=== PATIENT | female | born 1960 | race Caucasian/White ===

== ENCOUNTER → 2016-08-28 | Outpatient (CLI) | payer OTHER ==
[~2016-08-28] MED LIST: ASPCH81X PO
--- NOTE | 2016-08-29 13:02 | MAMMOGRAPHY REPORT ---
BILATERAL DIGITAL SCREENING MAMMOGRAM TOMOSYNTHESIS WITH CAD: 08/28/2016 CLINICAL HISTORY: Routine screening. Patient has no complaints. TECHNIQUE: Breast tomosynthesis in addition to standard 2D mammography was performed. Current study was also evaluated with a Computer Aided Detection (CAD) system. COMPARISON: Comparison is made to exams dated: 08/24/2015 mammogram, 07/15/2014 mammogram, 01/22/2014 m ammogram, and 07/15/2013 mammogram - [facility]. BREAST COMPOSITION: The tissue of both breasts is heterogeneously dense, which may obscure small ma sses. FINDINGS: There are stable circumscribed masses in the upper outer quadrant of the right breast. S cattered benign coarse calcifications. No new suspicious mass, architectural distortion or cluster o f microcalcifications is seen. IMPRESSION: ACR BI-RADS CATEGORY 2: BENIGN There is no mammographic evidence of malignancy. A 1 year screening mammogram is recommended. The p atient will receive written notification of the results. Approximately 10% of breast cancers are not detected with mammography. A negative mammographic repor t should not delay biopsy if a clinically suggestive mass is present. Kathia Wilde M.D. ay/:08/28/2016 15:47:22 Auto Service Station Attendant: Meghan MODI(Chilango)(Tawny)(BD), [facility] letter sent: Normal 1/2 BI-RADS Code: ACR BI-RADS Category 2: Benign
== END | disposition home or self-care (01) ==
LOC: C.MAMM 11:36
PROVIDERS: ATTEND Family Medicine
DX: Z12.31 Encounter for screening mammogram for malignant neoplasm of breast (principal)

== ENCOUNTER → 2017-08-30 | Outpatient (CLI) | payer OTHER ==
--- NOTE | 2017-08-31 14:41 | MAMMOGRAPHY REPORT ---
BILATERAL DIGITAL SCREENING MAMMOGRAM TOMOSYNTHESIS WITH CAD: 08/30/2017 CLINICAL HISTORY: Routine screening. Patient has no complaints. TECHNIQUE: Breast tomosynthesis in addition to standard 2D mammography was performed. Current study was also evaluated with a Computer Aided Detection (CAD) system. COMPARISON: Comparison is made to exams dated: 08/28/2016 mammogram, 08/24/2015 mammogram, 07/15/2014 ul trasound, 07/15/2014 mammogram, 01/22/2014 ultrasound, and 01/22/2014 mammogram - [facility]. BREAST COMPOSITION: The tissue of both breasts is heterogeneously dense, which may obscure small mas ses. FINDINGS: There are stable subcentimeter circumscribed masses in the upper outer posterior right jojo ast. However, there is a newly visualized 8.5 mm partially circumscribed mass in the left upper oute r quadrant. Although this could represent a cyst, definitive characterization with targeted ultrasou nd and possible additional mammographic views are recommended. No other suspicious mass, architectural distortion or cluster of microcalcifications is seen. IMPRESSION: ACR BI-RADS CATEGORY 0: INCOMPLETE EVALUATION: NEED ADDITIONAL IMAGING EVALUATION The newly visualized 8.5 mm mass in the left upper outer breast needs additional evaluation. The patient will be called to schedule an appointment. Approximately 10% of breast cancers are not detected with mammography. A negative mammographic report should not delay biopsy if a clinically suggestive mass is present. Kathia Wilde M.D. ay/:08/30/2017 15:14:27 Fireproof Door Maker: Laverne Husain, [facility] letter sent: Addl Imaging 0 BI-RADS Code: ACR BI-RADS Category 0: Incomplete Evaluation: Need Additional Imaging Evaluation
== END | disposition home or self-care (01) ==
LOC: C.MAMM 09:53
PROVIDERS: ATTEND Physician Assistant
DX: Z12.31 Encounter for screening mammogram for malignant neoplasm of breast (principal); N63.20 Unspecified lump in the left breast, unspecified quadrant

== ENCOUNTER → 2017-09-12 | Outpatient (CLI) | payer OTHER ==
--- NOTE | 2017-09-13 08:04 | MAMMOGRAPHY REPORT ---
ULTRASOUND OF BOTH BREASTS: 09/12/2017 CLINICAL HISTORY: 57-year-old woman called back from screening mammography for a partially circumscri bed 8.5 mm mass in the upper outer middle one third of the left breast. COMPARISON: Comparison is made to exams dated: 08/28/2016 mammogram, 08/24/2015 mammogram, 07/15/2014 ul trasound, 08/30/2017 mammogram, 07/15/2014 mammogram, and 01/22/2014 ultrasound - [facility] enter. FINDINGS: Targeted ultrasound was performed in the upper outer quadrant of the left breast to assess for the partially circumscribed 8.5 mm mammographic mass seen on recent screening mammogram. In the 3:00 axis, 4 cm from the nipple, there is a gently lobulated predominantly anechoic benign cyst with 2 internal nonvascular septations. This cyst measures 7.8 x 4.8 x 7.6 mm and correlates with the jeff mographic mass. This is benign. Incidentally seen in the left 2:00 breast, 2 cm from the nipple is an isoechoic solid mass that is indeterminate. This incidental mass is not completely circumscribed, lobulated and measures 5.1 x 3.8 x 5.9 mm. Definitive characterization with an ultrasound-guided co re biopsy is recommended. IMPRESSION: ACR BI-RADS CATEGORY 4: SUSPICIOUS - FOLLOW-UP RECOMMENDED 1. The lobulated 8.5 mm mammographic mass in the left upper outer quadrant correlates with a benign cyst on ultrasound seen in the 3:00 axis. 2. Incidentally identified on ultrasound while assessing for the other mass is a non-circumscribed i soechoic solid 5.9 mm mass in the 2:00 left breast, 2 cm from the nipple that could represent a benig n fibroadenoma although definitive characterization with ultrasound guided core needle biopsy is jean mmended. These results and recommendations were discussed with the patient at the time of the exam. She tenta tively scheduled a left breast biopsy prior to leaving the department. Kathia Wilde M.D. ay/:09/12/2017 14:18:12 Button Bradder: Laverne MODI(Chilango)(Tawny), [facility] letter sent: Abnormal 4/5 BI-RADS Code: ACR BI-RADS Category 4: Suspicious
== END | disposition home or self-care (01) ==
LOC: C.MAMM 12:48
PROVIDERS: ATTEND Physician Assistant
DX: N63.21 Unspecified lump in the left breast, upper outer quadrant (principal)

== ENCOUNTER → 2017-09-19 | Outpatient (CLI) | payer OTHER ==
--- NOTE | 2017-09-19 09:30 | Discharge Instructions ---
Discharge Instructions Procedure Procedure Date: Sep 19, 2017. Reason for visit: Left Mass. Discharge Discharge Date: Sep 19, 2017. Discharge Diagnosis: post left breast ultrasound guided core biopsy Instructions Activity Recommendations: Additional Limitations (see below) Return to School/Work: no limitations Recommended Home Diet: No Limitations Provider Instructions: ACTIVITY RECOMMENDATIONS: * No lifting, pushing, pulling or exercising the affected side for three days. RETURN TO SCHOOL/WORK: * You may return to work/school after the procedure, but do not perform any strenuous activities for 24 to 48 hours. MEDICATIONS: * Tylenol (two 325 mg) every four to six hours if needed for mild pain (if not allergic to Tylenol). DIET: * Resume previous diet. SPECIAL CARE INSTRUCTIONS: * Keep biopsy site dry for 24 hours. May shower after 24 hours, but do not soak (bathe) incision. * May remove Tegaderm (plastic patch) tomorrow AFTER showering. * Leave the steri-strips on for one week. Allow the steri-strips to fall off by themselves. If not off after one week, you may remove them. You may place a Bandaid crosswise over the strips, if desired. * Apply ice 10 minutes on and 10 minutes off as needed. * Wear a bra at bedtime to sleep more comfortably for 2-3 days. * Your referring physician should have the results after approximately 5 to 7 business days. * Call for unusual bleeding, fever, drainage, etc or if you have any questions call [phone] during normal business hours or after hours call Dr Wilde, . FOLLOW UP VISIT: Follow-up with Referring Physician as scheduled. Allergies Coded Allergies: Sulfa Drugs (Verified Allergy, Mild, HIVES, 08/13/09) [facility] [place] Recommendations: Call your doctor if: * Temperature above 101 degrees * Pain not relieved by pain medicine ordered * There is increased drainage or redness from any incision * You have any unanswered questions or concerns. Your Doctors Instructions noted above were prepared by provider Kathia Wilde. Patient Signature Section: Patient Instructions Signature Page Brittanykaylyn Villeda Patient (or Guardian) Signature/Date: I have read and understand the instructions given to me by my caregivers. Caregiver/RN/Doctor Signature/Date: The above-named patient and/or guardian has received patient instructions on this date. + Original Patient Signature Page (only) stays with chart. Please make copy for patient.
--- NOTE | 2017-09-19 15:38 | MAMMOGRAPHY REPORT ---
UNILATERAL LEFT DIGITAL DIAGNOSTIC MAMMOGRAM TOMOSYNTHESIS: 09/19/2017 CLINICAL HISTORY: Status post ultrasound-guided core biopsy of an isoechoic mass in the 2:00 left jojo ast. Please refer to the report from left breast ultrasound-guided core biopsy performed at the same time for full detail. IMPRESSION: POST PROCEDURE IMAGING FOR MARKER PLACEMENT Please refer to the report from left breast ultrasound-guided core biopsy performed at the same time for full detail. Approximately 10% of breast cancers are not detected with mammography. A negative mammographic report should not delay biopsy if a clinically suggestive mass is present. Kathia Wilde M.D. ay/:09/19/2017 09:36:26 Mine Supervisor: Marbella HAZEL)(M), [facility] BI-RADS Code: Post Procedure Imaging For Marker Placement
--- NOTE | 2017-09-20 15:14 | MAMMOGRAPHY REPORT ---
ULTRASOUND GUIDED BIOPSY LEFT BREAST: 09/19/2017 CLINICAL HISTORY: Isoechoic 5.9 mm mass incidentally identified in the 2:00 left breast on targeted u ltrasound, while scanning for a slightly larger mass identified mammographically. Patient presents f or ultrasound-guided core biopsy of this indeterminate isoechoic mass. The larger mass corresponded with a benign simple cyst. COMPARISON: Comparison is made to exams dated: 09/12/2017 ultrasound, 08/30/2017 mammogram, 08/28/2016 m ammogram, 08/24/2015 mammogram, 07/15/2014 mammogram, and 07/07/2013 mammogram - [facility] enter. PATIENT CONSENT: The procedure, risks and benefits were discussed with the patient and informed conse nt was obtained both verbally and in writing. Specific risks to this procedure include: bleeding, in fection, puncture of adjacent structure, nontarget biopsy, sampling error, pain, metal allergy and me dication reaction. PROCEDURE DESCRIPTION: A time out was performed and the left breast was agreed as the site of biopsy. The skin was prepped and draped in the usual sterile fashion. The isoechoic 5.9 mm mass in the 2:00 left breast was chosen as the target for biopsy. Subcutaneous and intraparenchymal 1% buffered lidoca ine, with and without epinephrine, was administered as local anesthesia. A skin incision was made. T hrough the incision, 4 samples were taken with a 14 gauge Achieve biopsy device. A ribbon shaped meta llic marker was placed at the biopsy site. Hemostasis was achieved after manual compression. The lucia ent tolerated the procedure well and there was no immediate complication. The samples were sent to [facility] pathology department in an appropriately labeled container. Postprocedure left CC and ML tomosynthesis images were obtained. There is a new ribbon-shaped biopsy marker clip in the 2:00 middle one third of the left breast, at the site of the biopsied isoechoic 5 .9 mm mass identified on ultrasound. No significant postbiopsy hematoma. IMPRESSION: ULTRASOUND GUIDED BIOPSY Status post ultrasound-guided core biopsy of an isoechoic 5.9 mm mass in the 2:00 left breast, with b iopsy marker placed at the site. The patient will receive notification of the biopsy results from her referring physician. Kathia Wilde M.D. ay/:09/19/2017 16:27:44 Line Walker: Karen Melton RT(R)(M), [facility]
== END | disposition home or self-care (01) ==
LOC: C.MAMM 08:44
PROVIDERS: ATTEND Physician Assistant
DX: R92.8 Other abnormal and inconclusive findings on diagnostic imaging of breast (principal); N63.20 Unspecified lump in the left breast, unspecified quadrant; D24.2 Benign neoplasm of left breast

== ENCOUNTER 2018-02-10 11:36 | Emergency (ER) | payer OTHER ==
[~2018-02-10] VITALS: Ht 170.2 cm; Wt 71.8 kg
[2018-02-10 11:38] VITALS: TEMP 36.7; Ht 170.2 cm; Wt 71.8 kg
--- NOTE | 2018-02-10 12:06 | EMERGENCY ROOM VISIT NOTE ---
History Report prepared by Pattie: Guadalupe Chen Under the Supervision of: Dr. Sarah Rankin D.O. First contact with patient: 11:47 Chief Complaint: CHEST PAIN Stated Complaint: CHEST PAIN History of Present Illness The patient is a 57 year old female who presents to the Emergency Room with complaints of intermittent chest pain that started 2 days ago. The patient rates her pain a 9/10 in severity. The patient reports the pain radiates "straight through" to her back. The patient describes the pain as "burning." She notes she ate pizza with onions and peppers and thought it could be indigestion so she took antacid pills with no relief. The patient reports she has a history of IBS. She also complains of nausea and dizziness when the pain gets severe. She denies shortness of breath, vomiting, or syncope. She states her mom has a history of hiatal hernia. She denies any recent travels. The patient notes she still has her gallbladder. Source of History: patient Onset: 2 days ago Position: chest Symptom Intensity: 9/10 Quality: sharp Timing: intermittent Associated Symptoms: + nausea, No SOB, No vomiting Review of Systems See HPI for pertinent positives & negatives. A total of 10 systems reviewed and were otherwise negative. Past Medical & Surgical Medical Problems: (1) Bronchitis (2) IBS (irritable bowel syndrome) Surgical Problems: (1) H/O: hysterectomy Family History Diabetes mellitus FHx: cancer Gallbladder disease Heart disease Hypertension Kidney disease Kidney stones Social History Smoking Status: Never Smoker Current/Historical Medications No Active Prescriptions or Reported Meds Allergies Coded Allergies: Sulfa Drugs (Verified Allergy, Mild, HIVES, 02/10/18) Physical Exam Vital Signs Date Time Temp Pulse Resp B/P (MAP) Pulse Ox O2 Delivery O2 Flow Rate FiO2 02/10/18 17:03 163/81 02/10/18 17:02 149/71 02/10/18 17:01 57 20 142/75 62 149/71 62 163/81 02/10/18 17:01 142/75 02/10/18 17:00 161/75 02/10/18 16:36 63 19 98 02/10/18 16:31 139/72 02/10/18 16:06 61 21 97 02/10/18 16:01 142/77 02/10/18 15:36 63 19 97 02/10/18 15:31 138/79 02/10/18 15:06 63 17 99 02/10/18 15:01 142/73 02/10/18 14:36 63 22 97 02/10/18 14:33 62 02/10/18 14:33 75 20 156/76 98 Room Air 02/10/18 14:31 156/76 02/10/18 13:45 98 Room Air 02/10/18 11:38 36.7 78 17 194/74 98 Room Air Physical Exam GENERAL: alert, well appearing, well nourished, no distress, non-toxic EYE EXAM: normal conjunctiva, PERRL and EOM's grossly intact OROPHARYNX: no exudate, no erythema, lips, buccal mucosa, and tongue normal and mucous membranes are moist NECK: supple, no nuchal rigidity, no adenopathy, non-tender LUNGS: Clear to auscultation. Normal chest wall mechanics, no w/r/r HEART: no murmurs, S1 normal and S2 normal ABDOMEN: abdomen soft, normo-active bowel sounds, no masses, no rebound or guarding. Epigastric tenderness. BACK: Back is symmetrical on inspection and there is no deformity, no midline tenderness, no CVA tenderness. SKIN: no rashes and no bruising UPPER EXTREMITIES: upper extremities are grossly normal. FROM, nml pulses. LOWER EXTREMITIES: No pitting edema. FROM, nml pulses. NEURO EXAM: Normal sensorium, cranial nerves II-XII grossly intact, normal speech, no gross weakness of arms, no gross weakness of legs. Medical Decision & Procedures ER Provider Diagnostic Interpretation: Radiology results have been interpreted by the radiologist and reviewed by me. CHEST ONE VIEW PORTABLE CLINICAL HISTORY: chest pain dyspnea COMPARISON STUDY: 02/01/2009 FINDINGS: The bones soft tissues and hemidiaphragms are normal. The cardiomediastinal silhouette is normal. The lungs are clear. The pulmonary vasculature is normal. IMPRESSION: Negative chest. The above report was generated using voice recognition software. It may contain grammatical, syntax or spelling errors. Electronically signed by: Ger Raza M.D. 02/10/2018 12:34 PM Dictated Date/Time: 02/10/2018 12:34 PM GALLBLADDER-ABD LIMITED CLINICAL HISTORY: epigastric pain nausea TECHNIQUE: Ultrasound COMPARISON STUDY: None FINDINGS: Normal gallbladder. Common bile duct 3 mm. Fatty infiltration of liver. Pancreas and right kidney are unremarkable. No evidence for hydronephrosis. IMPRESSION: Fatty infiltration of liver. Otherwise negative study. The above report was generated using voice recognition software. It may contain grammatical, syntax or spelling errors. Electronically signed by: Ger Raza M.D. 02/10/2018 1:45 PM Dictated Date/Time: 02/10/2018 1:45 PM Laboratory Results 02/10/18 12:42 Red Blood Count 4.52, Mean Corpuscular Volume 93.8, Mean Corpuscular Hemoglobin 31.6, Mean Corpuscular Hemoglobin Concent 33.7, Mean Platelet Volume 10.8, Neutrophils (%) (Auto) 65.9, Lymphocytes (%) (Auto) 24.7, Monocytes (%) (Auto) 6.2, Eosinophils (%) (Auto) 2.3, Basophils (%) (Auto) 0.8, Neutrophils # (Auto) 5.66, Lymphocytes # (Auto) 2.12, Monocytes # (Auto) 0.53, Eosinophils # (Auto) 0.20, Basophils # (Auto) 0.07 02/10/18 12:42 Test 02/10/18 12:42 White Blood Count 8.59 K/uL (4.8-10.8) Red Blood Count 4.52 M/uL (4.2-5.4) Hemoglobin 14.3 g/dL (12.0-16.0) Hematocrit 42.4 % (37-47) Mean Corpuscular Volume 93.8 fL (80-100) Mean Corpuscular Hemoglobin 31.6 pg (25-34) Mean Corpuscular Hemoglobin Concent 33.7 g/dl (32-36) Platelet Count 243 K/uL (130-400) Mean Platelet Volume 10.8 fL (7.4-10.4) Neutrophils (%) (Auto) 65.9 % Lymphocytes (%) (Auto) 24.7 % Monocytes (%) (Auto) 6.2 % Eosinophils (%) (Auto) 2.3 % Basophils (%) (Auto) 0.8 % Neutrophils # (Auto) 5.66 K/uL (1.4-6.5) Lymphocytes # (Auto) 2.12 K/uL (1.2-3.4) Monocytes # (Auto) 0.53 K/uL (0.11-0.59) Eosinophils # (Auto) 0.20 K/uL (0-0.5) Basophils # (Auto) 0.07 K/uL (0-0.2) RDW Standard Deviation 44.7 fL (36.4-46.3) RDW Coefficient of Variation 13.1 % (11.5-14.5) Immature Granulocyte % (Auto) 0.1 % Immature Granulocyte # (Auto) 0.01 K/uL (0.00-0.02) Prothrombin Time 9.9 SECONDS (9.0-12.0) Prothromb Time International Ratio 0.9 (0.9-1.1) Anion Gap 4.0 mmol/L (3-11) Est Creatinine Clear Calc Drug Dose 85.2 ml/min Estimated GFR () 110.7 Estimated GFR (Non- 95.5 BUN/Creatinine Ratio 15.0 (10-20) Calcium Level 8.4 mg/dl (8.5-10.1) Total Bilirubin 0.6 mg/dl (0.2-1) Aspartate Amino Transf (AST/SGOT) 12 U/L (15-37) Alanine Aminotransferase (ALT/SGPT) 20 U/L (12-78) Alkaline Phosphatase 88 U/L (45-117) Troponin I < 0.015 ng/ml (0-0.045) Pro-B-Type Natriuretic Peptide 120 pg/ml (0-900) Total Protein 7.1 gm/dl (6.4-8.2) Albumin 3.8 gm/dl (3.4-5.0) Globulin 3.3 gm/dl (2.5-4.0) Albumin/Globulin Ratio 1.2 (0.9-2) Lipase 154 U/L (73-393) Laboratory results per my review. Medications Administered Medications (Trade) Dose Ordered Sig/[place] Route Start Time Stop Time Status Last Admin Dose Admin Famotidine (Pepcid 20mg Iv Push) 20 mg ONE STAT IV 02/10/18 12:08 02/10/18 12:10 DC 02/10/18 14:42 20 MG Sucralfate (Carafate Susp) 1 gm NOW STAT PO 02/10/18 14:23 02/10/18 14:27 DC 02/10/18 15:18 1 GM Al Hydroxide/Mg Hydroxide (Maalox Susp) 30 ml NOW STAT PO 02/10/18 14:47 02/10/18 14:48 DC 02/10/18 15:28 30 ML Dicyclomine HCl (Bentyl Tab) 20 mg NOW STAT PO 02/10/18 14:47 02/10/18 14:48 DC 02/10/18 15:28 20 MG ECG Per My Interpretation Indication: chest pain Rate (beats per minute): 63 Rhythm: sinus rhythm Findings: no acute ischemic change, no ectopy, other (normal axis, normal intervals) ED Course 1147: The patient was evaluated in room B6. A complete history and physical exam was performed. 1208: Ordered Famotidine 20 mg IV. 1420: I rechecked the patient. She is feeling better. I updated her on her results. 1423: Ordered Sucralfate 1 gm PO. 1439: Ordered Famotidine 20 mg IV. 1447: Ordered Bentyl Tab 20 mg PO, Maalox Susp 30 ml PO. 1526: Ordered Bentyl Cap 20 mg .ROUTE. 1620: I rechecked the patient. She states she is feeling better but is still having some pain. 1645: Bedside ultrasound of aorta. No evidence of aneurysm or dissection. Sagittal measurement 1.39 cm. Longitudinal measurement 1.43 cm. 1655: Upon reevaluation, the patient is feeling better. I discussed the findings and the treatment plan with the patient. She verbalizes agreement and understanding. She was discharged home. Medical Decision Differential diagnosis: Etiologies such as cardiac ischemia, aortic dissection, pulmonary embolism, pneumonia, pneumothorax, musculoskeletal, infections, pericarditis, myocarditis , esophageal rupture, gastrointestinal, as well as others were entertained. Heart score 2 Patient's pain more epigastric than chest. Given that her symptoms started after pizza with peppers and onions, I feel this is more likely to be GI in origin. No evidence of acute cholecystitis but he did discuss with patient this could still be biliary colic and she may need an outpatient nuclear study and additional evaluation. Labs reassuring, troponin negative here after 3 days of pain, less likely ACS. I do not suspect acute vascular etiology including AAA or dissection. Bedside ultrasound of the aorta was reassuring and measurements within normal limits. Patient hemodynamically stable throughout. I do not suspect occult bacteremia/sepsis. No evidence of hypertensive urgency or emergency. I do not suspect perforation or GI bleed. Discussed with patient close follow-up, symptoms to watch and return for, she verbalized understanding was agreeable with plan. Medication Reconcilliation Current Medication List: was personally reviewed by me Blood Pressure Screening Patient's blood pressure: Elevated blood pressure Blood pressure disposition: Referred to PCP Impression Primary Impression: Epigastric pain Scribe Attestation The scribe's documentation has been prepared under my direction and personally reviewed by me in its entirety. I confirm that the note above accurately reflects all work, treatment, procedures, and medical decision making performed by me. Departure Information Dispostion Home / Self-Care Prescriptions No Active Prescriptions or Reported Meds Referrals Gurinder Trujillo M.D. (PCP) Patient Instructions My [facility] Additional Instructions Please call and follow-up with your family doctor regarding your pain. They may suggest additional testing including a possible HIDA scan of your gallbladder. Please avoid acidic foods and start taking an [id number] acid reducing medication such as Prilosec or Pepcid. Please avoid anti- inflammatories such as ibuprofen/Motrin/Aleve/Advil as these can irritate your stomach as well. Please try to avoid acidic foods such as alcohol, coffee, soda , tomato based products, and citrus fruits. If you have any recurrent or worsening pain, develop black or bloody stools, chest pain, trouble breathing, dizziness, fevers or chills, you have any other new concerns, please return the emergency room.
--- NOTE | 2018-02-10 12:36 | DIAGNOSTIC IMAGING REPORT ---
CHEST ONE VIEW PORTABLE CLINICAL HISTORY: chest pain dyspnea COMPARISON STUDY: 02/01/2009 FINDINGS: The bones soft tissues and hemidiaphragms are normal. The cardiomediastinal silhouette is normal. The lungs are clear. The pulmonary vasculature is normal. IMPRESSION: Negative chest. The above report was generated using voice recognition software. It may contain grammatical, syntax or spelling errors. Electronically signed by: Ger Raza M.D. 02/10/2018 12:34 PM Dictated Date/Time: 02/10/2018 12:34 PM
[2018-02-10 12:54] LABS: BASO % 0.8 %; BASO ABS # 0.07 K/uL (0-0.2); EOS % 2.3 %; HEMATOCRIT 42.4 % (37-47); HEMOGLOBIN 14.3 g/dL (12.0-16.0); IG# 0.01 K/uL (0.00-0.02); LYMPH % 24.7 %; LYMPH ABS # 2.12 K/uL (1.2-3.4); MEAN CELL VOLUME 93.8 fL (80-100); MEAN CORPUSCULAR HEMOGLOBIN 31.6 pg (25-34); MEAN CORPUSCULAR HGB CONC 33.7 g/dl (32-36); MEAN PLATELET VOLUME 10.8 fL (7.4-10.4); MONO % 6.2 %; MONO ABS # 0.53 K/uL (0.11-0.59); NEUT % 65.9 %; NEUT ABS # 5.66 K/uL (1.4-6.5); PLATELET COUNT 243 K/uL (130-400); RED CELL DISTRIBUTION WIDTH CV 13.1 % (11.5-14.5); RED CELL DISTRIBUTION WIDTH SD 44.7 fL (36.4-46.3); WHITE BLOOD COUNT 8.59 K/uL (4.8-10.8)
[2018-02-10] MEDS: FAMOTIDINE 20MG/5ML IV PUSH IV STA ×2 (12:54→14:42)
[2018-02-10 13:04] LABS: INR 0.9 (0.9-1.1)
[2018-02-10 13:17] LABS: ALBUMIN 3.8 gm/dl (3.4-5.0); ALKALINE PHOSPHATASE 88 U/L (45-117); ALT/SGPT 20 U/L (12-78); AST/SGOT 12 U/L (15-37); BLOOD UREA NITROGEN 10 mg/dl (7-18); CALCIUM 8.4 mg/dl (8.5-10.1); CARBON DIOXIDE 28 mmol/L (21-32); GLUCOSE 92 mg/dl (70-99); LIPASE 154 U/L (73-393); POTASSIUM 3.9 mmol/L (3.5-5.1); SODIUM 139 mmol/L (136-145); TOTAL PROTEIN 7.1 gm/dl (6.4-8.2)
--- NOTE | 2018-02-10 13:47 | DIAGNOSTIC IMAGING REPORT ---
GALLBLADDER-ABD LIMITED CLINICAL HISTORY: epigastric pain nausea TECHNIQUE: Ultrasound COMPARISON STUDY: None FINDINGS: Normal gallbladder. Common bile duct 3 mm. Fatty infiltration of liver. Pancreas and right kidney are unremarkable. No evidence for hydronephrosis. IMPRESSION: Fatty infiltration of liver. Otherwise negative study. The above report was generated using voice recognition software. It may contain grammatical, syntax or spelling errors. Electronically signed by: Ger Raza M.D. 02/10/2018 1:45 PM Dictated Date/Time: 02/10/2018 1:45 PM
[2018-02-10] MEDS ORDERED: SUCRALFATE 1 GM/10 ML UDC PO STA (14:23)
[2018-02-10] MEDS ORDERED: FAMOTIDINE 20MG/5ML IV PUSH IV ONE (14:39)
[2018-02-10] MEDS ORDERED: ALUMINUM/MAGNESIUM SUSP 30 ML UDC PO STA (14:47)
[2018-02-10] MEDS ORDERED: DICYCLOMINE HCL 20 MG TAB PO STA (14:47)
[2018-02-10] MEDS ORDERED: DICYCLOMINE HCL 10 MG CAP ONE (15:26)
[2018-02-10 16:36] VITALS: O2SAT 98
[2018-02-10 17:01] VITALS: PULSE 62
[2018-02-10 17:03] VITALS: BP 163/81
== END 2018-02-10 17:58 | disposition home or self-care (01) ==
LOC: C.EDB 11:37
DX: R10.13 Epigastric pain (principal); K58.9 Irritable bowel syndrome, unspecified; Z90.710 Acquired absence of both cervix and uterus; Z83.3 Family history of diabetes mellitus; Z80.9 Family history of malignant neoplasm, unspecified; Z83.79 Family history of other diseases of the digestive system; Z82.49 Family history of ischemic heart disease and other diseases of the circulatory system; Z84.1 Family history of disorders of kidney and ureter; Z88.2 Allergy status to sulfonamides

== ENCOUNTER → 2018-02-19 | Outpatient (CLI) | payer OTHER ==
--- NOTE | 2018-02-19 09:09 | DIAGNOSTIC IMAGING REPORT ---
GI WITH AIR AND BARIUM SWALLOW CLINICAL HISTORY: 57 years-old Female presenting with DYSPHAGIA. TECHNIQUE: A standard air contrast upper GI series was then performed. Spot images of the esophagus and stomach were obtained in multiple obliquities with upright and prone. The patient then consumed several of thin barium and a small follow-through was performed. COMPARISON: None. FINDINGS: The patient swallowed barium without difficulty. The esophagus is structurally normal without evidence of intrinsic or extrinsic mass. The esophageal mucosal pattern is normal. No gastroesophageal reflux was elicited by having the patient perform the Valsalva maneuver. The gastroesophageal junction distends normally. The stomach is normal in configuration and demonstrates normal distensibility. No mass or ulceration is identified. There was no evidence of gastritis. The duodenal bulb and sweep are unremarkable. On the small bowel follow-through, small bowel mucosal pattern is normal. There is no evidence of stricture or mass. Fluoroscopy dosage (mGy): Not available. Fluoroscopy time: 1.7 minutes. Number or time of fluoroscopic spot images: 0. IMPRESSION: Normal fluoroscopic examination of the esophagus, stomach, duodenum, and small bowel. Electronically signed by: Kristofer Dinero M.D. 02/19/2018 9:08 AM Dictated Date/Time: 02/19/2018 9:06 AM
== END | disposition home or self-care (01) ==
LOC: C.RAD 07:32
PROVIDERS: ATTEND Physician Assistant
DX: R13.10 Dysphagia, unspecified (principal)

== ENCOUNTER → 2018-02-22 | Outpatient (CLI) | payer OTHER ==
[~2018-02-22] MED LIST changes: -ASPCH81X PO; +SINCALIDE INJ 1.4 MCG in SODIUM CHLORIDE 0.9% 100ML 100 ML IV SCH
--- NOTE | 2018-02-22 12:38 | DIAGNOSTIC IMAGING REPORT ---
HEPATOBILIARY EF IMAGING HISTORY: Pain. Nausea. [facility]) COMPARISON: None. TECHNIQUE: Immediately following the intravenous administration of 3.9 mCi Tc-99m Choletec, dynamic anterior abdominal imaging pre/post mcg of Kinevac was performed. FINDINGS: Uniform hepatic tracer accumulation is shown. Prompt intrahepatic biliary excretion is seen. The gallbladder, common bile duct, and small bowel are all visualized by 35 minutes. This appearance represents the normal sequence of biliary excretion. The gallbladder ejection fraction following administration of Kinevac was 84 % (normal >35%). IMPRESSION: 1. No evidence for cystic duct obstruction. 2. Gallbladder ejection fraction calculated to be 84 %. The above report was generated using voice recognition software. It may contain grammatical, syntax or spelling errors. Electronically signed by: Ger Raza M.D. 02/22/2018 12:36 PM Dictated Date/Time: 02/22/2018 12:35 PM
== END | disposition home or self-care (01) ==
LOC: C.NUCL 10:08
PROVIDERS: ATTEND Physician Assistant
DX: R10.13 Epigastric pain (principal)